=== PATIENT | male | born 1940 | race Caucasian/White ===

== ENCOUNTER 2019-05-07 04:55 | Inpatient (IN) | payer MEDICARE, OTHER ==
[~2019-05-07] VITALS: Ht 193 cm; Wt 103.0 kg
--- NOTE | 2019-05-07 05:08 | NUR ---
[id number]. SYNCOPAL EPISODE WHILE GOING TO BATHROOM. DENIES HT. WEAKNESS x 1 WEEK TO ER BED 3 AWAITNG MD CARRERA
--- NOTE | 2019-05-07 05:09 | NUR ---
bp laying down 112/82 sitting up 99/57
[2019-05-07 05:26] LABS: BASOPHILS % (AUTO) 0.1 % (0.0-2.0); EOSINOPHILS % (AUTO) 0.1 % (0.0-6.0); HEMATOCRIT 28 % (39-51); HEMOGLOBIN 8.7 g/dL (13.5-17.5); LYMPHOCYTES # (AUTO) 1.6 /CMM (0.8-4.8); LYMPHOCYTES % (AUTO) 10.7 % (20.0-44.0); MEAN CORPUSCULAR HGB CONC 31 g/dl (31.0-36.0); MEAN CORPUSCULAR VOLUME 90 fL (80-96); MONOCYTES # (AUTO) 0.5 /CMM (0.1-1.30); MONOCYTES % (AUTO) 3.5 % (2.0-12.0); NEUTROPHILS # (AUTO) 12.6 /CMM (1.8-8.9); NEUTROPHILS % (AUTO) 85.6 % (43.0-81.0); PLATELET COUNT (AUTO) 277 /CMM (150-450); RED BLOOD CELL COUNT(AUTO) 3.09 MIL/uL (4.5-6.0); WHITE BLOOD COUNT (AUTO) 14.8 K/uL (4.3-11.0)
[2019-05-07] MEDS ORDERED: IV NS 0.9% 1,000 ML BAG IV ONE (05:30)
--- NOTE | 2019-05-07 05:42 | NUR ---
PT BACK FROM RADIOLOGY
[2019-05-07 05:45] LABS: CALCIUM, SERUM 8.4 mg/dL (8.5-10.1); CARBON DIOXIDE 14 mmol/L (21-32); CHLORIDE 105 mmol/L (98-107); CREATININE 2.9 mg/dL (0.6-1.3); GLUCOSE 149 mg/dL (74-106); POTASSIUM 4.9 mmol/L (3.5-5.1); SODIUM SERUM 140 mmol/L (136-145); UREA NITROGEN, BLOOD 62 mg/dL (7-18)
[2019-05-07 05:50] LABS: ALANINE AMINOTRANSFERASE 799 U/L (12-78); ALBUMIN 2.5 g/dL (3.4-5.0); ALKALINE PHOSPHATASE 96 U/L (46-116); BILIRUBIN,DIRECT 0.5 mg/dL (0.0-0.2); BILIRUBIN,TOTAL 1.1 mg/dL (0.2-1.0); TOTAL PROTEIN, SERUM 5.9 g/dL (6.4-8.2)
[2019-05-07 06:01] LABS: ASPARTATE AMINOTRANSFERASE 1258 U/L (15-37)
--- NOTE | 2019-05-07 06:21 | NUR ---
PAGED DR. 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
--- NOTE | 2019-05-07 06:26 | NUR ---
DR. MUNGUIA ON THE PHONE WITH DR. DING
--- NOTE | 2019-05-07 06:27 | NUR ---
SPOKE WITH PT'S HOSPICE NURSE, SUNDAY SALAS RN AND REQUESTED FOR PT'S POLST AND OTHER CLINICAL INFORMATION TO BE FAXED Addendum: 05/07/19 at 0701 by [facility] N[facility]SE CONTACT INFORMATION: SUNDAY SALAS RN, C.
--- NOTE | 2019-05-07 06:27 | NUR ---
PT PLACED ON PACER
--- NOTE | 2019-05-07 07:46 | NUR ---
AUTHORIZED BY [facility], [place],DR MARCELINO RUSSO AND [place] TO DR MUNGUIA
--- NOTE | 2019-05-07 07:48 | NUR ---
DR BENSON WANTS EPIC TO ADMIT,GRAY HADLEY PAGED
--- NOTE | 2019-05-07 07:48 | NUR ---
PT RECEIVED FROM VEE WEINBERG FOR KRISTINE. PT IN BED. PT TITRATED DOWN TO 4LPM VIA NC @ 4 LPM. O2 SAT @ 99%. TOLERATED WELL AND VERBALIZED THAT BREATHING IS BETTER
--- NOTE | 2019-05-07 07:50 | NUR ---
NIRAJ HERNANDEZ CALLED FOR MED SURGE BED
--- NOTE | 2019-05-07 08:10 | NUR ---
WAITING FOR MS BED
[2019-05-07] MEDS ORDERED: IV D5/0.45 NACL 1,000 ML IV PRN (08:17)
--- NOTE | 2019-05-07 08:25 | NUR ---
REPORT GIVEN TO DARCI BAXTER AT MED/SURG. AWAITING TRANSFER TO FLOOR.
[2019-05-07] MEDS ORDERED: MAGNESIUM HYDROXIDE 30 ML UDC PO PRN (08:30)
[2019-05-07] MEDS ORDERED: ONDANSETRON HCL/PF 4 MG/2 ML VIAL IVP PRN (08:30)
[2019-05-07] MEDS ORDERED: MAG HYDROX/AL HYDROX/SIMETH 30 ML UDC PO PRN (08:30)
[2019-05-07] MEDS ORDERED: Z GUARD REMEDY 2 OZ OINT TP PRN (08:30)
[2019-05-07] MEDS ORDERED: ZOLPIDEM TARTRATE 5 MG TABLET PO PRN (08:30)
[2019-05-07] MEDS ORDERED: ACETAMINOPHEN 325 MG TABLET PO PRN (08:30)
[2019-05-07] MEDS ORDERED: HYDROCODONE/APAP 5/325MG 1 EACH TABLET PO PRN (08:30)
[2019-05-07] MEDS ORDERED: MORPHINE SULFATE INJ 2 MG/ML DISP.SYRIN IV PRN (08:30)
--- NOTE | 2019-05-07 08:40 | NUR ---
pPATIENT TRANSFERRED TO ROOM 328 VIA MEDR. IN STABLE CONDITION.
--- NOTE | 2019-05-07 09:00 | NUR ---
ADMIT FROM ER PT BROUGHT IN VIA GURNEY BY NURSE SARAH. 78Y/O MALE WITH ADMITTING DX OF SYNCOPE. HX OF CANCER BUT OF UNKNOWN SOURCE. PT APPEARS TO BE PALE. HE IS ALERT AND ORIENTED X4. APPARENTLY PER ER NURSES REPORT PT WAS ON HOSPICE FROM HOME BUT WAS BROUGHT IN THE ER D/T SYNCOPE. PT STATED THAT HE LOST CONSCIOUSNESS WHILE HE WAS IN THE BATHROOM. PT STATES THAT HE DOESNT WANT ANY AGGRESSIVE MEASURES. HE STATES HE DOESNT WANTTO BE RESUCITATED AND THAT "I JUST WANT TO PASS PEACEFULLY AND COMFORTABLY." PT IS VERY PLEASANT. SOB NOTED. RR AT 22. HE BECOMES VERY SHORT OF BREATH UPON EXERTION AND WHEN HOB IS NOT ELEVATED. PT SATURATION DROPS TO LOW 80s WHEN HOB IS <90 DEGREES. KEPT HOB ELEVATED AT HIGH FOWLERS. SATURATION GOES UP TO 97% ON 4L OF O2. PT IS INCONTINENT OF B/B. HE STATES THAT HE IS "TOO WEAK TO DO ANYTHING". PT IS NON AMBULATORY. ON BEDREST. IV ACCESS NOTED ON R AC G18. D51/2 NS STARTER AT 75ML/HR PER NAOMI TRETIAKS ORDER. PER NAOMI HE SAW PT IN THE ER. BUE EDEMA +2 AND BLE EDEMA +3 NOTED. WITH DRYNESS ON BLE. PICTURES TAKEN. PLACED IN CHART. VS TAKEN NOTED AT T=98.3, P= 61, RR= 22, BP= 74/42, O2 SAT 97% ON 4L OF O2 VIA NC. ORIENTED PT TO UNIT ROOM, SAFETY PRECAUTIONS IN PLACE. CALL LIGHT WITH IN REACH. BED LOCKED AND IN LOW POSITION. BED ALARM ON. WILL CONTINUE TO MONITOR
[2019-05-07] MEDS ORDERED: SCOPOLAMINE HBR 1 EA PATCH.TD72 TD ONE (10:00)
[2019-05-07 10:18] VITALS: BP 74/42
--- NOTE | 2019-05-07 10:30 | NUR ---
DNR/DNI CONFIRMED WITH NAOMI RE: PT CODE STATUS. PER NAOMI, PT WILL BE DNR/DNI. PT IS AOX4 AND HAS THE CAPACITY TO ABRAMS DECISIONS. PER NAOMI HE ALREADY SPOKE TO PT. ALSO OBTAINED ORDERS FOR DIET. NOTED AND CARRIED OUT.
--- NOTE | 2019-05-07 11:30 | NUR ---
DEUCE MADE ROUNDS. PT IN BED. AWAKE, HE IS WATCHING TV. I ASKED PT IF HE HAS ANY FAMILY. HE STATES HE LIVES ALONE. HE STATES THAT HIS CLOSEST RELATIVE IS A SISTER FROM [place]. BUT THAT HE DOESN'T HAVE A CONTACT NUMBER FOR HER BECAUSE HE LEFT IT AT HIS APT.
--- NOTE | 2019-05-07 11:45 | NUR ---
CASE MANAGEMENT REFERRAL PER CM, PT WILL BE DISCHARGING BACK HOME BACK ON HOSPICE. NOTIFIED PT REGARDING PLANS FOR D/C. PT AGREEABLE.
--- NOTE | 2019-05-07 12:15 | NUR ---
LUNCH PROVIDED PT PROVIDED WITH LUNCH, HE STATES THAT HE DOESNT HAVE ANY APPETITE. ENCOURAGES FLUIDS. HE DRANK SIPS OF WATER. IV FLUIDS RUNNING
--- NOTE | 2019-05-07 13:30 | NUR ---
ROUNDS PT IN BED. HE IS CURRENTLY SLEEPING. BUT HE IS AROUSABLE. BREATHING EVEN AND UNLABORED. PT RESTING COMFORTABLY IN BED. AWAITING FOR VICTORIAN LITERATURE PROFESSOR FOR D/C.
--- NOTE | 2019-05-07 14:30 | NUR ---
ROUND ROUNDS MADE. PT IS AWAKE. HE IS WATCHING TV. HE ASKED ME TO INCREASE THE VOLUME OF THE TV. ASKED PT IF HE IS OKAY. PT STATED, "IM JUST TIRED." PROVIDED PT WITH EMOTIONAL SUPPORT. RE-ASSURED THAT STAFF ARE HERE FOR HIM TO ATTEND TO ALL HIS NEEDS. PT WAS VERY THANKFUL.
--- NOTE | 2019-05-07 15:05 | NUR ---
ROUNDS. MADE ROUNDS. PT IN BED SLEEPING. BREATHING IS EVEN AND UNLABORED. I LIGHTLY TOUCHED HIM, HE IS AROUSABLE. ASKED PT IF HE WAS IN ANY PAIN. HE STATES "NO. I AM OKAY."
--- NOTE | 2019-05-07 15:22 | NUR ---
PT MADE ROUNDS, PT WAS FOUND IN BED, EYES CLOSED. NO BREATHING/RESPIRATIONS NOTED. PULSE CHECKED, UNABLE TO OBTAIN PULSE. TRIED TO OBTAIN VITAL SIGNS, BUT TO NO AVAIL. NO BP, NO PULSE. CALLED NAOMI CONDUIT HELPER, NOTIFIED OF PT CONDITION. PT AT 1522. PER NAOMI, THIS WAS EXPECTED. HE STATED THAT THE PT TOLD HIM THAT HE JUST WANTS TO PASS PEACEFULLY. PT IS DNR/DNI.
--- NOTE | 2019-05-07 15:30 | NUR ---
CALLED [facility] CALLED [facility] AND NOTIFIED OFP TS EXPIRATION. . THEY STATED THAT THEY WILL CALL US BACK.
--- NOTE | 2019-05-07 15:45 | NUR ---
[facility] M[facility] C[facility] PROVIDED ALONG WITH THE [facility]P. IV ACCESS WAS REMOVED. PT WAS KEPT CLEAN. ALL BELONGINGS ACCOUNTED FOR AND LABELLED.
--- NOTE | 2019-05-07 17:00 | NUR ---
[facility] PER [facility] OKAY TO RELEASE BODY.
--- NOTE | 2019-05-07 19:03 | NUR ---
NOTIFIED FAMILY NOTIFIED SISTER PATRICA REGARDING PTS EXPIRATION. SISTER VERY APPRECIATIVE OF ALL THE CARE PROVIDED.
== END 2019-05-07 15:22 | disposition expired ==
LOC: ER 04:57 → MED 08:19
PROVIDERS: ADMIT Nurse Practitioner Acute Care; ATTEND Nurse Practitioner Acute Care
DX: I44.2 Atrioventricular block, complete (principal); N17.0 Acute kidney failure with tubular necrosis; I21.A1 Myocardial infarction type 2; J18.9 Pneumonia, unspecified organism; C79.9 Secondary malignant neoplasm of unspecified site; D68.69 Other thrombophilia; E44.0 Moderate protein-calorie malnutrition; J91.8 Pleural effusion in other conditions classified elsewhere; R64 Cachexia; Z51.5 Encounter for palliative care; Z66 Do not resuscitate; E88.09 Other disorders of plasma-protein metabolism, not elsewhere classified; M62.84 Sarcopenia; R55 Syncope and collapse; R74.0 Nonspecific elevation of levels of transaminase and lactic acid dehydrogenase [LDH]; Z68.27 Body mass index [BMI] 27.0-27.9, adult; R79.89 Other specified abnormal findings of blood chemistry; D72.829 Elevated white blood cell count, unspecified; D64.9 Anemia, unspecified; I27.20 Pulmonary hypertension, unspecified
CPT/HCPCS: 36415; 70450-TC; 71045-TC; 80048-TC; 80076-TC; 84484-TC; 85025-TC; 85730-TC; 87081-TC; G0378; J7030